=== PATIENT | female | born 1990 | race Caucasian/White ===

== ENCOUNTER 2023-11-08 04:34 | Day surgery (SDC) | payer OTHER | END 2023-11-08 12:18 | disposition home or self-care (01) | LOC: JASU-ENDO 04:34 | PROVIDERS: ATTEND Internal Medicine Gastroenterology | PROC: 0DB78ZX Excision of Stomach, Pylorus, Via Natural or Artificial Opening Endoscopic, Diagnostic (ICD-10-PCS; 2023-11-08) | PROC: 0DB68ZX Excision of Stomach, Via Natural or Artificial Opening Endoscopic, Diagnostic (ICD-10-PCS; principal; 2023-11-08 11:30) | DX: K29.50 Unspecified chronic gastritis without bleeding (principal); K30 Functional dyspepsia | CPT/HCPCS: 81025; 88305-TC; 88342-TC ==

== ENCOUNTER 2023-12-11 04:15 | Day surgery (SDC) | payer OTHER | END 2023-12-11 11:44 | disposition home or self-care (01) | LOC: JASU-ENDO 04:15 | PROVIDERS: ATTEND Internal Medicine Gastroenterology | PROC: 0DBL8ZX Excision of Transverse Colon, Via Natural or Artificial Opening Endoscopic, Diagnostic (ICD-10-PCS; 2023-12-11) | PROC: 0DBM8ZX Excision of Descending Colon, Via Natural or Artificial Opening Endoscopic, Diagnostic (ICD-10-PCS; 2023-12-11) | PROC: 0DBK8ZX Excision of Ascending Colon, Via Natural or Artificial Opening Endoscopic, Diagnostic (ICD-10-PCS; principal; 2023-12-11 10:00) | DX: R19.7 Diarrhea, unspecified (principal); R10.84 Generalized abdominal pain | CPT/HCPCS: 81025; 88305-TC ==